=== PATIENT | female | born 1960 | race Caucasian/White ===

== ENCOUNTER 2017-06-11 07:24 | Day surgery (SDC) | payer OTHER ==
--- NOTE | 2017-06-03 12:58 | HP ---
CC: Dr. Margie Barry; Dr. Mahesh Medley III * ADMISSION HISTORY AND PHYSICAL: DATE OF ADMISSION/SURGERY: 06/11/17 - [facility] ATTENDING SURGEON: Teresa Kaufman MD * (DICTATED BY KRISTI BAUTISTA) PRIMARY CARE PHYSICIAN: Mahesh Medley III, MD CHIEF COMPLAINT: Left breast DCIS. HISTORY OF PRESENT ILLNESS: Nisreen is a pleasant 57-year-old female, who returned to our office to discuss breast surgery. The patient had her annual mammogram back in May of this year that revealed suspicious area of cluster microcalcification on the left outer quadrant of the left breast that was not biopsied. The patient went on and had a biopsy of the area that revealed DCIS with areas of atypical ductal hyperplasia. Given her new diagnosis, the patient was referred to our office to discuss further treatment of breast cancer. She was seen by Dr. Kaufman earlier this week and all her mammograms, MRI, and biopsy, pathology reports were discussed and the patient was found to be a good candidate for a mammogram-guided localization of the left breast and excision of DCIS and ADH. The patient herself reports doing well overall. She does her monthly self-breast exam on a regular basis and denies any breast masses or lumps. She had experienced no breast pain, nipple discharge, skin changes, or axillary swelling. She has a strong family history of breast cancer with her 2 sisters diagnosed at age 44 and 53 respectively. Her maternal grandmother also had breast cancer at age 50 and also had 2 maternal first cousins with history of breast cancer diagnosed at age 50 and late 30's. Her 2 sisters were tested for breast cancer genes and were found to be negative for BRCA genes. She reports menarche at age 12 and menopause at age 49. First delivery at age 31 and she has never taken any control pills before. The patient was seen today for further evaluation of breast cancer and to discuss surgery as outlined. PAST MEDICAL HISTORY: Her past medical history is significant for: 1. Hypothyroidism. 2. GERD. 3. Back pain from herniated disk. 4. Hyperlipidemia. 5. Cluster headaches. 6. Chronic sinusitis and rhinitis. 7. She also has history of exercise-induced asthma. 8. Recent history of DCIS of the left breast. 9. Hyperlipidemia. PAST SURGICAL HISTORY: Significant for: 1. Sinus surgery x2 back in the . 2. She also had history of hemifacial spasm on the right side for which she had arterial imaging on her facial nerve in [facility] in 2013. CURRENT MEDICATIONS: Her medications at home include: 1. 10 mg 1 tablet as needed for headache and may repeat once after 2 hours if not resolved. 2. Symbicort 160/4.5 mcg 2 puffs inhaled twice daily. 3. Simvastatin 20 mg 1 tablet by mouth daily. 4. Levothyroxine 25 mcg 1-1/2 tablets by mouth every day. 5. Dymista 137/50 mcg 1 spray in each nostril b.i.d. 6. Calcium supplement plus vitamin D 1 tablet daily. 7. Krill oil 300 mg 1 tablet daily. 8. KCl 10 mEq once daily. 9. Dexilant 60 mg once daily. 10. Loratadine 10 mg once daily. 11. Vitamin B12 2500 mcg once daily. 12. Sudafed 12-hour relief twice daily as needed for nasal congestion. ALLERGIES: She has no known allergies. FAMILY HISTORY: As mentioned above significant for breast cancer on the maternal side with 2 sisters diagnosed as well as maternal grandmother and 2 first cousins. She also has a history of hyperlipidemia on the paternal side with her father suddenly after surgery at age 79. 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 She has never smoked. She consumes hot tea and occasional coffee. She denies illicit drug use. REVIEW OF SYSTEMS: See HPI, otherwise negative. She denies any headache, dizziness, blurred vision, or double vision. No sore throat, shortness of breath, or wheezing. No chest pain, palpitation, or ankle swelling. She denies any back pain, flank pain, dysuria, hematuria, or urinary frequency. She denies any breast lumps, masses, nipple discharge, skin changes, nausea, vomiting, abdominal pain, or recent changes in her bowel habits. Denies constitutional symptoms. No fever, chills, night sweats, or recent weight loss. PHYSICAL EXAMINATION GENERAL: She is a pleasant, healthy-appearing, middle-aged female, comfortable , and in no acute distress or discomfort at the time of her visit. VITAL SIGNS: Her vitals today revealed blood pressure of 126/80, pulse of 66, temperature of 97.1. She is 5 feet 5 inches, weight 186 pounds with BMI of 30.7. HEENT: Sclerae anicteric. PERRLA. EOMs intact. Oropharynx is pink, moist with no exudate. NECK: Supple. Trachea midline. No cervical adenopathy, thyromegaly, or JVD. LUNGS: Clear to auscultation bilaterally. No rales, wheezes, or rhonchi. HEART: Regular rate and rhythm. Normal S1 and S2 without rubs, murmurs, or gallops. BACK: Normal curvature. No CVA tenderness. ABDOMEN: Soft, nontender, nondistended. No hernias, masses, or hepatosplenomegaly. BREAST EXAM: Her breast exam was performed earlier this week by Dr. Kaufman that revealed a symmetrical breast. Exam was performed while the patient was in supine position and in sitting position. There is some residual bruising on the left breast from prior stereotactic biopsy. Breasts were normal to palpation bilaterally. There are no masses or lumps in the left breast. Nipples appear to be normal on inspection. No discharge or skin changes noted. There was no visible or palpable cervical or axillary lymphadenopathy. NEUROLOGIC: Grossly intact. RECTAL EXAM: Deferred at this time. EXTREMITIES: Without cyanosis, clubbing, or edema. IMPRESSION: A 57-year-old female with recent diagnosis of left breast abnormal mammogram with biopsy proven ductal carcinoma in situ/atypical ductal hyperplasia of the left breast. PLAN: The patient is scheduled for mammogram-guided needle localization and excision of left breast DCIS/ADH. The rationale, indications, risks, and benefits of surgery were discussed with her today. Risks include, but not limited to, infection, bleeding, or injury to adjacent structures. We went on and answered all her questions. She seems to be well informed and wishes to proceed with surgery as outlined. She had her cardiac visit with Dr. Barry last week and appears to be doing well with normal ECG and slight improvement in her cholesterol numbers. We will follow her up accordingly after surgery. KRISTI BAUTISTA [id number]/[facility] #: [id number] HANNAH
[~2017-06-11 07:24] MED LIST: Buffered Lidocaine 0.9% SYRIN* 5 ML/SYR SYRINGE INTRADERM ONE; Lidocaine 2.5%/Prilocain 2.5%* 5 GM TUBE ONE; Sodium Citrate/Citric Acid* 15 ML UDC PO ONE
[2017-06-11] MEDS ORDERED: Sodium Citrate/Citric Acid* 15 ML UDC ONE (09:19)
[2017-06-11] MEDS ORDERED: ceFAZolin 2 GM PREMIX (*) 2 GM/50 ML BAG IVPB ONE (09:28)
--- NOTE | 2017-06-11 10:17 | RAD ---
PROCEDURE: Mammographic needle/wire localization of the left breast PREOPERATIVE DIAGNOSIS: Atypical ductal hyperplasia, low-grade DCIS POSTOPERATIVE DIAGNOSIS: Same COMPARISONS: Outside mammograms and MRI COTTON PROGRAM TECHNICIAN: Robel Sherman MD ANESTHESIA: Local anesthesia with 1% lidocaine without epinephrine FLUOROSCOPY TIME: None CONTRAST: None PROCEDURAL NARRATIVE: The procedure was explained to the patient who indicated understanding. Written and verbal informed consent was obtained. An opportunity was given to ask and answer questions. A timeout was performed. The patient was prepped and draped in the usual sterile fashion. Using mammographic guidance, a needle/wire localization system was advanced to the target lesion in the left breast. Once position was confirmed, the needle was removed using pin pull technique. Post localization mammography was performed. The wound was dressed and the wire was secured. FINDINGS: Spot images demonstrate the wire in close proximity to the biopsy marker clip SPECIMENS: Pending COMPLICATIONS: None DISPOSITION: The patient tolerated the procedure well, without complications during or immediately following the procedure. The patient was sent to the surgical suite in good, stable condition. IMPRESSION: TECHNICALLY SUCCESSFUL UNCOMPLICATED MAMMOGRAPHICALLY GUIDED WIRE LOCALIZATION OF THE LEFT BREAST FOR THE PURPOSES OF THE EXCISIONAL BIOPSY.
[2017-06-11] MEDS ORDERED: Lidocaine 1% INJ* 10 MG/ML 30 ML SDV ONE (13:29)
[2017-06-11] MEDS ORDERED: Bupivacaine 0.5% SDV PF* 30 ML VIAL ONE (13:29)
[2017-06-11] MEDS ORDERED: Midazolam* 1 MG/ML 2 ML VIAL (2 MG) ONE ×2 (13:41→13:50)
[2017-06-11] MEDS ORDERED: fentaNYL* 50 MCG/ML 2 ML VIAL (100 MCG VIAL) ONE (13:41)
[2017-06-11] MEDS ORDERED: Lidocaine 2% PF * 5 ML VIAL ONE (13:48)
[2017-06-11] MEDS ORDERED: Propofol* 10 MG/ML 20 ML BTL IV PUSH ONE (13:48)
[2017-06-11] MEDS ORDERED: Acetaminophen TAB* 325 MG PO PRN (14:45)
--- NOTE | 2017-06-11 14:45 | PN ---
Progress Note - Progress Note Date of Service: 06/11/17 Note: Brief Operative Note: Preop Dx: Left Breast cancer (DCIS and ADH( Postop Dx: same Procedure: wide excision Left breast cancer after needle-localization Anesthesia: local, MAC Surgeon: Mandeep Asst: KRISTI Henry Fluids: 700 ml RL EBL: < 50 ml Drains: none Specimen: Right breast tissue Findings: dictated
[2017-06-11] MEDS ORDERED: oxyCODONE/Acetamin 5/325 MG* TAB PO PRN (14:46)
[2017-06-11 15:17] VITALS: BP 137/81
--- NOTE | 2017-06-19 03:19 | OP ---
DATE OF OPERATION: 06/11/17 - [facility] DATE OF : 60 SURGEON: Teresa Kaufman MD PRESSROOM SUPERVISOR: KRISTI Orlando PRE-OP DIAGNOSIS: Microcalcifications of the left breast. POST-OP DIAGNOSIS: Microcalcifications of the left breast. OPERATIVE PROCEDURE: Needle localization and excision of left breast microcalcifications. INDICATIONS: This patient is a 57-year-old female who had microcalcifications identified on a mammogram. She had undergone stereotactic biopsy, which showed questionable results, but at least atypical ductal hyperplasia prompting the plan for surgical intervention. On the date of procedure, she underwent needle localization without difficulty. DESCRIPTION OF PROCEDURE: She was then brought to the operating room, placed on the OR table in the supine position and given IV sedation. The left breast was prepped and draped in the usual sterile fashion taking care not to dislodge localizing wire. After infiltrating local anesthetic, a curvilinear incision was made encompassing the wire. Subcutaneous tissue was then divided with electrocautery to excise the mass of tissue from around the wire. The specimen was removed and handed off with the usual markings. Hemostasis was achieved with electrocautery and once this was adequate, the wound was instilled with additional local and then closure was accomplished with 3-0 Vicryl in the subcutaneous layer and the skin was closed with 4-0 Prolene in a subcuticular fashion. Steri-Strips and a dry sterile dressing were applied. All sponge and instrument counts were correct. The patient tolerated the procedure well and was transferred to Recovery in a stable condition. [id number]/[facility] #: [id number] MTDD
== END 2017-06-11 15:49 | disposition home or self-care (01) ==
LOC: SDS 07:24
PROVIDERS: ATTEND Surgery
DX: D05.12 Intraductal carcinoma in situ of left breast (principal); Z68.30 Body mass index [BMI] 30.0-30.9, adult; E78.5 Hyperlipidemia, unspecified; E03.9 Hypothyroidism, unspecified; K21.9 Gastro-esophageal reflux disease without esophagitis; J45.990 Exercise induced bronchospasm
CPT/HCPCS: 88307; 88341; 88342; 88360; A9270-GY; J0690; J2001; J2250; J2704; J3010

== ENCOUNTER 2017-10-18 08:31 | Day surgery (SDC) | payer OTHER ==
[~2017-10-18 08:31] MED LIST changes: -Lidocaine 2.5%/Prilocain 2.5%* 5 GM TUBE ONE; -Sodium Citrate/Citric Acid* 15 ML UDC PO ONE
[2017-10-18] MEDS ORDERED: ceFAZolin 2 GM (*##) 2 GM/100 ML BAG USE CEFA2SOL IVPB ONE (08:42)
[2017-10-18] MEDS ORDERED: Buffered Lidocaine 0.9% SYRIN* 5 ML/SYR SYRINGE ONE (08:42)
[2017-10-18] MEDS ORDERED: ROPIVACAINE 5 MG/ML 30 ML BTL (0.5%) ONE (10:54)
[2017-10-18] MEDS ORDERED: Lidocaine 2% PF * 5 ML VIAL ONE (10:55)
[2017-10-18] MEDS ORDERED: Propofol* 10 MG/ML 20 ML BTL IV PUSH ONE (10:55)
[2017-10-18] MEDS ORDERED: Midazolam* 1 MG/ML 2 ML VIAL (2 MG) ONE (10:56)
[2017-10-18] MEDS ORDERED: Dexamethasone IV* 4 MG/ML 1 ML (4 MG) ONE (11:51)
[2017-10-18] MEDS ORDERED: Lidocaine 1% MPF wEPI 200,000* 30 ML SDV ONE (12:30)
[2017-10-18] MEDS ORDERED: Bupivacaine 0.25% SDV* 30 ML ONE (12:31)
[2017-10-18] MEDS ORDERED: fentaNYL* 50 MCG/ML 2 ML VIAL (100 MCG VIAL) IV PRN (12:34)
[2017-10-18] MEDS ORDERED: Ondansetron INJ* 2 MG/ML VIAL IV PRN (12:34)
[2017-10-18] MEDS ORDERED: Naloxone* 0.4 MG/ML 1 ML VIAL IV PRN (12:34)
[2017-10-18] MEDS ORDERED: Ondansetron INJ* 2 MG/ML VIAL ONE (14:07)
[2017-10-18] MEDS ORDERED: fentaNYL* 50 MCG/ML 2 ML VIAL (100 MCG VIAL) ONE (14:07)
[2017-10-18 16:00] VITALS: BP 129/94
[2017-10-18] MEDS ORDERED: Scopolamine 1.5 mg* PATCH ONE (16:02)
--- NOTE | 2017-10-19 07:31 | RAD ---
INDICATION: Right wrist surgery. COMPARISON: Comparison is made with prior x-ray study of the right wrist from August 31, 2017. TECHNIQUE: 5 seconds of intermittent fluoroscopic guidance were provided and 3 spot films of the right wrist were obtained in the operating room. FINDINGS: There appears to be resection of the displaced ulnar styloid fracture fragment. IMPRESSION: INTRAOPERATIVE CONTROL FILMS. CPT II Codes: 6045F
--- NOTE | 2017-10-19 14:38 | OP ---
DATE OF OPERATION: 10/18/17 - [facility] DATE OF : 60 SURGEON: Peter Staples MD ARBORICULTURE TEACHER: KRISTI Brink. An auction assistant was needed for the entirety of the procedure to aid in positioning of the arm, retraction, and passing the arthroscopic instrument in and out of the joint. ANESTHESIOLOGIST: Dr. Banda. ANESTHESIA: General with peripheral nerve block. 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 POST-OP DIAGNOSES: 1. Right central triangular fibrocartilage complex perforation. 2. Erosive lesion in the distal ulna. 3. Detachment of the right ulnar styloid. OPERATIVE PROCEDURE: 1. Diagnostic right wrist arthroscopy with central TFCC tear debridement. 2. Curettage and autogenous distal radius bone grafting of right distal ulna erosive bone lesion. 3. Synovectomy of right distal radial ulnar and ulnocarpal wrist joint. 4. Excision of detached right ulnar styloid fragment with open repair of TFCC as able. INDICATIONS: Arun has had progressive ulnar sided wrist pain over years. This all got much worse after back last January, she had an episode where she was cleaning an object and it snapped back and twisted her wrist awkwardly. Since then, the ulnar sided wrist pain has really increased. It has become daily and over the last month or so, it has been very painful. She has failed the nonoperative treatment. 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 She does not have a diagnosis of inflammatory arthropathy or crystalline arthropathy. I talked to her about the risks and benefits. I told her there was a risk that she may still have pain after the surgery, risk of stiffness, or risk of DRUJ instability. She wished to proceed with surgery. ESTIMATED BLOOD LOSS: 2 mL. COMPLICATIONS: None. FINDINGS: As expected, see above and below. DESCRIPTION OF PROCEDURE: Nisreen was seen in the preoperative holding area. We came back to the operating room. The arm was prepped and draped in the usual fashion. This was done after the block had been performed by Dr. Banda. A time- out was performed. The arm was hung in the Acumed wrist traction tower using finger traps. The appropriate traction was placed. I then exsanguinated the arm with the Esmarch and the tourniquet was inflated to 250 mmHg. I used an 11-blade followed by a mosquito and then the blunt trocar to introduce the camera through the 3-4 portal. I then developed 4-5 portal in standard fashion. The biter followed by the shaver was introduced into the 4-5 portal and the central TFCC perforation was debrided back. The distal end of the ulna was visible through the TFCC perforation. I did perform a partial dorsal synovectomy as there was some red inflamed synovitis there. Once I had debrided everything that I could through the wrist scope, I went ahead and developed mid carpal portals. The scapholunate and lunotriquetral ligament joints looked intact. No additional pathology was visualized in the mid carpal portal. The arthroscopic equipment was then withdrawn. The arm was taken out of the traction tower and we prepared for the open portion of the procedure. I made a longitudinal incision over the dorsal ulnar aspect of the wrist. Dissection was carried down and full thickness flaps were raised off the extensor retinaculum. The fifth dorsal compartment was opened and the EDM tendon was mobilized and then retracted radially. I then made a longitudinal DRUJ capsulotomy which was brought back transversely just proximal to the dorsoradial ulnar ligament. There was abundant synovitis encapsulating the distal end of the ulna involving the DRUJ and the ulnocarpal joint just proximal to the dorsoradial ulnar ligament. This was excised and a synovectomy was performed. All of the synovitis was handed off as a specimen. I then extended my flaps back transversely until the extensor carpi ulnaris tendon was unroofed. This was retracted ulnarly. A synovectomy was performed around the ECU tendon as there was a small amount of synovitis present around the tendon. The lesion in the distal end of the ulna was encountered. I took a curette and performed a complete curettage. A 2.4 mm pineapple patric was used to freshen up the edges of the curettage. Just distal to this, the ulnar styloid was detached and very loose and floating. I went ahead and released the soft tissue circumferentially about that and the ulnar styloid was excised and handed off as a specimen together with the curettings from the bone lesion. Once I had completed the curettage and everything was looking clean and the tissue remained was healthy, the defect in the distal ulna was quite sizeable. I decided it needed to be grafted. I retracted my skin flap radially and made a longitudinal incision that took me down to the dorsum of the distal radius. A cortical window was made with the osteotomes. The curette was used to gain cancellous bone graft from the metaphysis of the distal radius. This was packed into my distal ulna bone lesion. Once I had adequate bone graft in the bone lesion, I irrigated out the dorsal distal radius wound. I then took a 3-0 Ethibond suture and sewed into the periphery of the TFCC. I used an 0 Prolene suture to wheeler through the distal subchondral bone of the ulna into the lesion. The 0 Prolene was used to suture shuttle the 3-0 Ethibond suture tails that I had placed in the periphery of the TFCC. These were brought down on to the undersurface of the subchondral bone and tied off securing the periphery of the TFCC to the end of the distal ulna. I tried to increase the DRUJ stability as it had seemed a little lax in pronation and neutral dorsally. After the TFCC was repaired and with the bone graft nicely in place, I went ahead and closed my capsular flap with the 4-0 Ethibond suture. The extensor retinaculum was closed. The EDM tendon was left transposed. The ECU tendon was brought back into its groove and the retinaculum and subsheath were repaired over the top of that to the extent possible. Great care was taken not to sew into the ECU tendon. With the deep layers then closed, I irrigated out the wound. The skin was reapproximated with 3-0 Vicryl and closed with 4-0 Monocryl suture and Steri-Strips. The arthroscopy portals were closed with Steri-Strips. The wounds were then dressed with Xeroform, 4x4's, sterile Webril and a sugar tong splint was placed with the forearm in gentle supination. Tourniquet was deflated. She was woken up and taken to the recovery room in stable condition. [id number]/[facility] #: [id number] [facility] CENTERTamir
== END 2017-10-18 16:27 | disposition home or self-care (01) ==
LOC: OR 08:31
PROVIDERS: ATTEND Orthopaedic Surgery Hand Surgery
DX: M24.831 Other specific joint derangements of right wrist, not elsewhere classified (principal); M24.131 Other articular cartilage disorders, right wrist; J45.909 Unspecified asthma, uncomplicated; E78.00 Pure hypercholesterolemia, unspecified; K21.9 Gastro-esophageal reflux disease without esophagitis; E03.9 Hypothyroidism, unspecified; Z79.899 Other long term (current) drug therapy
CPT/HCPCS: 76000; 88304; 88305; 88311; A9270-GY; J1100; J2001; J2250; J2405; J2704; J2795; J3010

== ENCOUNTER → 2017-11-15 10:20 | Day surgery (SDC) | payer OTHER ==
[~2017-11-15 10:20] MED LIST changes: +Bupivacaine 0.25% SDV* 30 ML ONE; +Bupivacaine 0.5%* 50 ML VIAL ONE; +Chloroprocaine 2%* 20 ML VIAL ONE; +Dexamethasone IV* 4 MG/ML 1 ML (4 MG) ONE; +Famotidine IV* 10 MG/ML 2 ML (20 mg) ONE; +Ketorolac INJ* 30 MG/ML 1 ML VIAL IV PUSH ONE; +Ketorolac INJ* 30 MG/ML 1 ML VIAL ONE; +Lidocain 1% EPI 1:100,000 * 30 ML MDV ONE; +Lidocaine 2% JELLY* 6 ML JELLY TOPICAL ONE; +Midazolam* 1 MG/ML 2 ML VIAL (2 MG) ONE; +Ondansetron INJ* 2 MG/ML VIAL ONE; +Scopolamine 1.5 mg* PATCH ONE; +ceFOXitin 2 GM IVPREMIX* 2 GM/50 ML BAG IVPB ONE; +ceFOXitin(*) 1 GM VIAL ONE; +diPHENhydraMINE IV* 50 MG/ML 1 ml VIAL (BENADRYL) ONE; +fentaNYL* 50 MCG/ML 2 ML VIAL (100 MCG VIAL) ONE
[2017-11-15 15:31] VITALS: BP 118/72
--- NOTE | 2017-11-16 04:20 | OP ---
DATE OF OPERATION: 11/15/17 [facility] DATE OF : 60 SURGEON: Jamie Duvall MD PROGRAM LEAD: Ninfa Abbott NP ANESTHESIOLOGIST: Dr. Pablo Mcfarland. ANESTHESIA: Spinal with local. PRE-OP DIAGNOSES: Hemorrhoids, prolapsing with bleeding. POST-OP DIAGNOSIS: The same, Internal and external hemorrhoids. OPERATIVE PROCEDURE: Anorectal exam under anesthesia with hemorrhoidectomy. ESTIMATED BLOOD LOSS: Minimal. SPECIMENS: Hemorrhoidal tissue. DRAINS: None. COMPLICATIONS: None. WOUND CLASSIFICATION: III. FINDINGS: The patient had prolapsing ulcerated internal hemorrhoids in the two right-sided pedicles with edematous external hemorrhoidal tissue. These two pedicles were removed including both internal and external hemorrhoidal tissue using an open technique. BRIEF HISTORY: Ms. Nisreen Dockery is a 57-year-old woman who has a long history of hemorrhoids. She has problems with discomfort and prolapse and has always been able to reduce them. She has had persistent bleeding, but has never sought care in the past and not had surgery for hemorrhoids as well. She has been recently seen in the office on several occasions over the past week and had internal prolapsing hemorrhoids reduced. She has persistent discomfort and prolapse with bleeding and at this point after an attempted banding, which was not successful, it was recommended that she proceed with an anorectal exam under anesthesia with plans for an open hemorrhoidectomy. The procedure was discussed with the patient and her in detail. The risks but not limited to bleeding, infection, abscess formation, incontinence due to sphincter muscle injury, prolonged recovery time, and prolonged discomfort were all explained. Her questions were answered and she gives her consent. DESCRIPTION OF PROCEDURE: Written informed consent was obtained, intravenous antibiotics were administered. She was taken to the operating room and spinal anesthetic was administered. She was placed in the prone herve-knife position. The perineum and buttocks were prepped and draped in the usual sterile fashion. Time-out verification was completed. A perianal block was then used using a long 25-gauge needle with a mixture of 0.25% Marcaine with 1% lidocaine with epinephrine. On exam, there was obvious circumferential edematous, but viable external hemorrhoidal tissue. This appeared to be worse on the right than the left. Digital exam showed decreased tone due to the spinal anesthetic, but no evidence of bleeding or obvious mass. Careful examination of the anorectal canal using appropriate retractor showed 2 large hemorrhoidal pedicles in the right medial and right posterior areas with ulcerated internal hemorrhoidal tissue. This tissue was viable and not necrotic. The distal rectal mucosa appeared to be unremarkable. There was a smaller more normal appearing left-sided hernia pedicle, which did not appear to be significant and was without evidence of ulceration or prolapse. At this point, I made a decision to proceed with excision of the 2 hemorrhoidal pedicles on the right. I started with the larger one, which was more posterior at about the 5 o'clock position. Using the cut mode on the electrocautery, the perianal skin was excised starting distally and using an elliptical incision followed up into the anal canal and with care we are able to excise both the internal and external hemorrhoid. I was able to identify the sphincter muscles and these were dissected "down" to protect them from injury up to above the dentate line in the distal rectal mucosa where the pedicle was clamped with a tonsil clamp, the hemorrhoidal tissue was amputated and sent for specimen. A 2-0 Vicryl LigaSure was then used to ligate the vascular pedicle with good result. Attention was then turned to the second pedicle, which was somewhat more around the 2 o'clock position. Similarly, the external skin was divided with the cautery in elliptical incision, extending into the anal canal to include the external and internal hemorrhoidal tissue up to above the dentate line. Once again, the pedicle was clamped with a tonsil clamp. The hemorrhoidal tissue was amputated and the pedicle was oversewn with an interrupted 2-0 Vicryl suture. I left approximately a 1 cm width of mucosa between the 2 hemorrhoidectomies, which appeared to viable at the completion of the case. Hemostasis was assured and the hemorrhoidectomy sites appeared to be without evidence of bleeding. Lidocaine jelly was placed in the anal canal. Dry sterile dressings were placed. The patient tolerated the procedure well, was taken to the recovery room in stable condition. [id number]/[facility] #: [id number] MTDD
== END | disposition home or self-care (01) ==
LOC: OR 10:20
PROVIDERS: ATTEND Surgery
DX: K64.3 Fourth degree hemorrhoids (principal); J45.909 Unspecified asthma, uncomplicated; Z85.3 Personal history of malignant neoplasm of breast; K21.9 Gastro-esophageal reflux disease without esophagitis; K44.9 Diaphragmatic hernia without obstruction or gangrene
CPT/HCPCS: 88304; A9270-GY; J0694; J1100; J1200; J1885; J2250; J2400; J2405; J3010

== ENCOUNTER → 2019-03-29 08:06 | Day surgery (SDC) | payer OTHER ==
[~2019-03-29 08:06] MED LIST changes: -Buffered Lidocaine 0.9% SYRIN* 5 ML/SYR SYRINGE INTRADERM ONE; +Buffered Lidocaine 1% SYRIN* 1 ML/SYRINGE INTRADERM ONE; -Bupivacaine 0.25% SDV* 30 ML ONE; -Bupivacaine 0.5%* 50 ML VIAL ONE; -Chloroprocaine 2%* 20 ML VIAL ONE; +EPINEPHRINE 1 MG/ML 1 ML VIAL ONE; -Famotidine IV* 10 MG/ML 2 ML (20 mg) ONE; -Ketorolac INJ* 30 MG/ML 1 ML VIAL IV PUSH ONE; -Ketorolac INJ* 30 MG/ML 1 ML VIAL ONE; +Lactated Ringers 1000 ML Bag* 1,000 ML IV SCH; -Lidocain 1% EPI 1:100,000 * 30 ML MDV ONE; +Lidocaine 1% w EPI 1:100,000* MDV 20 ML VIAL ONE; -Lidocaine 2% JELLY* 6 ML JELLY TOPICAL ONE; +Lidocaine 4% TOPICAL* 50 ML TOP.SOLN ONE; +Midazolam* 1 MG/ML 5 ML VIAL (5 MG) ONE; +Naloxone* 0.4 MG/ML 1 ML VIAL IV PRN; +Ondansetron INJ* 2 MG/ML VIAL IV PRN; +Oxymetazoline 0.05% NASAL SPR* 15 ML BTL ONE; +Propofol* 10 MG/ML 20 ML BTL ONE; +Rocuronium* 10 MG/ML VIAL ONE; -ceFOXitin 2 GM IVPREMIX* 2 GM/50 ML BAG IVPB ONE; -ceFOXitin(*) 1 GM VIAL ONE; -diPHENhydraMINE IV* 50 MG/ML 1 ml VIAL (BENADRYL) ONE; +fentaNYL* 50 MCG/ML 2 ML VIAL (100 MCG VIAL) IV PRN; +oxyCODONE/Acetamin 5/325 MG* TAB PO PRN
--- NOTE | 2019-03-29 13:43 | OP ---
DATE OF OPERATION: 03/29/19 - [facility] DATE OF : 60 SURGEON: Prasad Nicholas MD. PRE-OP DIAGNOSIS: Right vocal cord cyst. POST-OP DIAGNOSIS: Right vocal cord cyst. OPERATIVE PROCEDURE: Microlaryngoscopy with an excision of a right vocal cord cyst with mini-micro flap under general endotracheal anesthesia. COMPLICATIONS: None. DISPOSITION: Good. SPECIMENS: None. ESTIMATED BLOOD LOSS: None. DESCRIPTION OF PROCEDURE: The patient was taken to the operating room and placed in the supine position on the operating table. General anesthesia was induced, and she was orotracheally intubated, turned and draped for the surgery. Tooth guard was placed on the upper teeth and the laryngoscope was inserted and suspended from the suspension system and the microscope was brought in. She had a cyst lying at the leading edge of the mid membranous vocal cord on the right side. A sickle knife was used to make an incision through the mucosa on the lateral aspect of the cyst. A micro grasper was used to elevate the mucosa. A tab knife was used to elevate out, the cyst did rupture. I then used micro cup to peel out the cyst lining and the micro flap was placed back into position. This was done using oxymetazoline and 4% lidocaine as an anesthetic topical solution. Once the surgery was completed, the laryngoscope was released and removed and so was the tooth guard. The patient tolerated the procedure well, no complications, transferred to the recovery room in stable condition. [id number]/[facility] #: [id number] MTDD
[2019-03-29 15:49] VITALS: BP 153/85
== END | disposition home or self-care (01) ==
LOC: OR 08:06
PROVIDERS: ATTEND Otolaryngology
DX: J38.7 Other diseases of larynx (principal); K21.9 Gastro-esophageal reflux disease without esophagitis; E03.9 Hypothyroidism, unspecified
CPT/HCPCS: A9270-GY; J1100; J2250; J2405; J2704; J3010

== ENCOUNTER 2019-06-07 14:10 | Emergency (ER) | payer OTHER ==
--- OUTSIDE RECORDS SUMMARY | 2019-06-07 14:41 | XMS REPORT | Continuity of Care Document ---
:1960 External Reference #:[id number] Author Name Stephen Nicholas M.D. Address [address] [place] [address] Care Team Providers Name Role Phone Marisa Sumner M.D. - Neurology Care Team Information [employer] [phone] Stacie De Leon M.D. Care Team Information [employer] [phone] Problems Description No Information Available Social History Type Date Description Comments Sex Unknown Tobacco Use Start: Unknown End: Unknown Former Social Smoker Smoking Status Reviewed: 04/10/19 Former Social Smoker Tobacco Use Start: Unknown End: Unknown current.no Tobacco Use Start: Unknown End: Unknown current.no Smokeless Tobacco current.no ETOH Use Currently rarely consumes alcohol Tobacco Use Start: Unknown End: Unknown Patient is a former smoker Allergies, Adverse Reactions, Alerts Description No Known Drug Allergies Medications Active Medications SIG Qnty Indications Ordering Provider Date Bactroban Nasal apply to nose 15gm John Paul Hodgson, 06/20/2014 2% twice daily MD Ointment Symbicort 2 puffs 2x a day 90days Stephen Patrick 09/04/2013 with spacer Ricardo Nicholas 160-4.5mcg/Act Aerosol Spacer For Symbicort Olease provide 493.90 Stephen Patrick 12/07/2012 spacer for Ricardo Nicholas symbicort Dymista 1 spray twice a 90days 477.0 Stephen Patrick 08/30/2012 137-50mcg/Act day "wait for Ricardo Nicholas Suspension secondary insurance card" Mupirocin Apply To Each 88units Stephen Patrick 06/08/2012 2% Ointment Nostril Twice A Ricardo Nicholas Day as Directed By MD Swain Nasal Zeigler 2 sprays once a 90Days Stephen Patrick 12/10/2011 day Ricardo Nicholas 0.15% 205 mcg Epipen 2-Vivek use as directed 2units 477.8 Stephen Patrick 05/06/2011 Ricardo Nicholas 0.3mg/0.3ML Device Maxalt 10MG Unknown 10mg Tablets Ipratropium Nasal prn Unknown Zeigler Calcium Citrate Plus bid Unknown Tablets Vitamin D3 daily Unknown 2000Unit Capsules Vitamin B-12 daily Unknown 2500mcg Tablets Sub Tizanidine HCL take 1 capsules Unknown 4mg by mouth every 8 Capsules hours if needed for muscle spasm Montelukast Sodium Mccray PA, Kyle 10mg Tablets Tamoxifen Citrate Anderson RING SEWER, Eunice 20mg Tablets Desloratadine Fenezekiel PA, 5mg Cyndy Tablets Simvastatin Emmie Stone RING SEWER 20mg Tablets Dexilant Emmie Stone NP 60mg Capsules DR Krill Oil 300MG daily Mahesh Medley MD 1000mg Capsules Coq10 200MG Daily Mahesh Medley MD 100mg Capsules Xyzal 1 by mouth every Mahesh Medley MD 5mg Tablets day Clarinex 1 by mouth every Mahesh Medley MD 5mg Tablets day Immunotherapy Unknown Sudafed Unknown Levothyroxine Sodium 50mcg daily Unknown Prevacid Unknown Immunizations Description No Information Available Vital Signs Date Vital Result Comment 04/11/2019 3:39pm Weight 189.00 lb Weight 85.730 kg 03/14/2019 1:59pm Weight 189.00 lb Weight 85.730 kg Height 65 inches 5'5" Height in cm's 165.1 cm BMI (Body Mass Index) 31.4 kg/m2 Results Description No Information Available Procedures Date Code Description Status 04/11/2019 05163 Fiberoptic Laryngoscopy Completed 03/29/2019 35818 Laryngoscopy, Dir. Oper. W/Micro Or Telescope RMVL Of VC Completed Lesion 03/14/2019 42777 Fiberoptic Laryngoscopy Completed Medical Devices Description No Information Available Encounters Description No Information Available Assessments Date Code Description Provider 04/11/2019 J38.2 Nodules of vocal cords Stephen Nicholas M.D. 03/29/2019 J38.2 Nodules of vocal cords Stephen Nicholas M.D. 03/14/2019 J38.2 Nodules of vocal cords Stephen Nicholas M.D. Plan of Treatment 04/11/2019 - Stephen Nicholas M.D.J38.2 Nodules of vocal cordsComments:The patient is doing really well after removal of the right vocal cord cyst. There is some edema of the cord but the cyst is gone and there is no significant bruising. She can start talking for needs but I want her to wait a could of weeks before starting full voice use. If she has any problems with her voice at that time she should get some speech therapy.Follow up:FU as needed Functional Status Description No Information Available Mental Status Description No Information Available Referrals Description No Information Available
--- OUTSIDE RECORDS SUMMARY | 2019-06-07 14:41 | XMS REPORT | Continuity of Care Document ---
:1960 External Reference #:[id number] Author Name Emmie Stone, N.P. (transmitted by agent of provider Kimberli Whiting) Address [address] [facility] [facility], [address] [place] [id number] Care Team Providers Name Role Phone Stacie De Leon MD - Internal Care Team Information Investor Relations Manager Medicine Problems Active Problems Provider Date Personal history of primary malignant Emmie Stone, N.P. Onset: 10/26/2017 neoplasm of breast Pure hypercholesterolemia Mahesh Medley M.D. Onset: 11/07/2012 Hypothyroidism Mahesh Medley M.D. Onset: 06/20/2015 Asthma without status asthmaticus Mahesh Medley M.D. 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/2017 Social History Type Date Description Comments Sex Unknown Tobacco Use Start: Unknown Never Smoked Cigarettes ETOH Use Rarely consumes alcohol Tobacco Use Start: Unknown Patient has never smoked Recreational Drug Use Denies Drug Use Smoking Status Reviewed: 05/08/19 Patient has never smoked Exercise Type/Frequency walks on occ Exercise Type/Frequency Exercises regularly walks; home treadmill, ellipitical Allergies, Adverse Reactions, Alerts Active Allergies Reaction Severity Comments Date NKDA 07/23/2011 Tape 08/31/2017 Medications Active Medications SIG Qnty Indications Ordering Date Provider Bactrim DS one by mouth twice 14tabs N39.0 Emmie Varn, 05/08/2019 800-160mg a day for 7 days N.P. Tablets Tizanidine HCL one by mouth every 30caps M54.5 Emmie Varn, 01/06/2019 4mg 8 hours as needed N.P. Capsules muscle spasms Levothyroxine Sodium 1 by mouth every 90tabs Emmie Bertha, 11/16/2018 day N.P. 50mcg Tablets Betamethasone Apply to scalp bid 50gm L30.9 Emmie Martinezrafael, 03/15/2018 Valerate for 2 weeks N.P. 0.12% Foam Maxalt-[employer] PROFESSIONAL use 1 tab as 12tabs Emmie Bertha, 03/27/2016 10mg Tablets needed for N.P. Dispers headaches. may repeat once after 2 hours Simvastatin 1 tablet by mouth 90tabs E78.2 Emmie Martinezrafael, 05/29/2014 20mg daily N.P. Tablets Tamoxifen Citrate 1 by mouth every Unknown 20mg day Tablets Montelukast Sodium 1 by mouth every Unknown 10mg day Tablets Clarinex 1 tab by mouth Unknown 5mg Tablets every day for allergies and congestion Ipratropium 1 unit every 6 Unknown Haworth/Albuterol hours as needed Sulfate 0.5-2.5(3)mg/3ML Solution Psyllium Husk take 1/2 Unknown 100% tablespoon once Powder daily in 6 ounces of water Krill Oil once a day Unknown 350mg Capsules Sudafed 12 Hour 1 by mouth daily Unknown 120mg Tablets ER 12HR Vitamin B12 1 by mouth every Unknown 2500mcg day Tablets ER Vitamin D3 1 by mouth every Unknown 1000Unit day Tablets Dexilant 1 by mouth every 90caps Emmie Martinezrafael, 60mg Capsules day N.P. DR Mupirocin apply to both Unknown 2% Ointment nostrils twice a day for 5 days prn Symbicort 2 puff inhaled Unknown twice a day 160-4.5mcg/Act Aerosol Coq-10 1 by mouth every 90caps Unknown 100mg Capsules day Calcium Citrate + D3 2 tab po daily Unknown [id number] Tablets Dymista 1 spray each Unknown 137-50mcg/Act nostril bid Suspension Medications Administered in Office Medication SIG Qnty Indications Ordering Provider Date Influenza Virus Vaccine Unknown 05/02/2015 Injection Depomedrol 80MG Delonte Gutierrez M.D. 08/25/2011 Injection Immunizations CPT Code Status Date Vaccine Lot # [id number] Given 05/06/2018 Influenza Virus Vaccine, Quadrivalent, Split, Preservative Free [id number] Given 06/23/2016 Influ Virus Vaccine, Quadrivalent, Split Virus, [place] [id number] [address] Given 06/20/2015 Pneumonia Vaccine [id number] Given 06/20/2015 Tdap - Tetanus/Diptheria/Acellular Pertussis [id number] Given 06/04/2009 Influenza Virus Vaccine, Pandemic Formulation 18114 Given 06/04/2009 Administration Swine Flu Shot [id number] Given 07/01/2005 Td (History By Patient) Vital Signs Date Vital Result Comment 05/08/2019 9:08am Height 65 inches 5'5" Weight 190.00 lb Heart Rate 60 /min BP Systolic 136 mmHg Ra sitting BP Diastolic 85 mmHg Ra sitting Body Temperature 97.8 F O2 % BldC Oximetry 97 % BMI (Body Mass Index) 31.6 kg/m2 01/06/2019 11:32am Height 65 inches 5'5" Weight 185.50 lb Heart Rate 98 /min BP Systolic 127 mmHg BP Diastolic 81 mmHg Body Temperature 98.7 F O2 % BldC Oximetry 98 % BMI (Body Mass Index) 30.9 kg/m2 Results Test Date Facility Test Result H/L Range Note Laboratory test 12/30/2018 [facility] TSH (Thyroid 2.52 Normal 0.34-5.[address] Stim Horm) mcIU/[place] [address] [phone] Basic Metabolic 12/30/2018 [facility] Sodium 138 mmol/L Normal 135-145 Panel [address] [place] [address] [phone] Potassium 3.7 mmol/L Normal 3.5-5.0 Chloride 106 mmol/L Normal 101-111 Co2 Carbon Dioxide 26 mmol/L Normal 22-32 Anion Gap 6 mmol/L Normal 2-11 Glucose 119 mg/dL High 70-100 Blood Urea Nitrogen 14 mg/dL Normal 6-24 Creatinine 0.73 mg/dL Normal 0.51-0.95 BUN/Creatinine Ratio 19.2 Normal 8-20 Calcium 9.1 mg/dL Normal 8.6-10.3 Egfr Non- 81.9 >60 Egfr 99.1 >60 1 Laboratory 11/09/2018 [facility] TSH (Thyroid 4.33 Normal 0.34 -5.60 2 test finding [address] Stim Horm) mcIU/[place] [address] [phone] Lipid Profile 11/09/2018 [facility] Triglycerides 91 mg/dL 3 (Trig/Chol/HD [address] L) [place], [place] [id number] [phone] Cholesterol 165 mg/dL 4 HDL Cholesterol 43.9 mg/dL 5 LDL Cholesterol 103 mg/dL 6 CBC Auto 11/09/2018 [facility] White Blood 5.9 10^3/uL Normal 3.5-10.[address] [place] [address] [phone] Red Blood Count 4.93 10^6/uL High 3.70-4.87 Hemoglobin 14.6 g/dL Normal 12.0-16.0 Hematocrit 42 % High 33-41 Mean Corpuscular Volume 86 fL Normal 80-97 Mean Corpuscular Hemoglobin 30 pg Normal 27-31 Mean Corpuscular HGB Conc 35 g/dL Normal 31-36 Red Cell Distribution Width 13 % Normal 10.5-15 Platelet Count 213 10^3/uL Normal 150-450 Mean Platelet Volume 8.6 fL Normal 7.4-10.4 Abs Neutrophils 4.0 10^3/uL Normal 1.5-7.7 Abs Lymphocytes 1.2 10^3/uL Normal 1.0-4.8 Abs Monocytes 0.4 10^3/uL Normal 0-0.8 Abs Eosinophils 0.2 10^3/uL Normal 0-0.6 Abs Basophils 0.1 10^3/uL Normal 0-0.2 Abs Nucleated RBC 0 10^3/uL Granulocyte % 68.6 % Lymphocyte % 20.2 % Monocyte % 6.7 % Eosinophil % 3.5 % Basophil % 1.0 % Nucleated Red Blood Cells % 0 Comp Metabolic 11/09/2018 [facility] Sodium 140 mmol/L Normal 135-[address] [place], [place] [id number] [phone] Potassium 4.3 mmol/L Normal 3.5-5.0 Chloride 104 mmol/L Normal 101-111 Co2 Carbon Dioxide 29 mmol/L Normal 22-32 Anion Gap 7 mmol/L Normal 2-11 Glucose 99 mg/dL Normal 70-100 Blood Urea Nitrogen 18 mg/dL Normal 6-24 Creatinine 0.74 mg/dL Normal 0.51-0.95 BUN/Creatinine Ratio 24.3 High 8-20 Calcium 9.6 mg/dL Normal 8.6-10.3 Total Protein 7.0 g/dL Normal 6.4-8.9 Albumin 4.8 g/dL Normal 3.2-5.2 Globulin 2.2 g/dL Normal 2-4 Albumin/Globulin Ratio 2.2 Normal 1-3 Total Bilirubin 0.80 mg/dL Normal 0.2-1.0 Alkaline Phosphatase 102 U/L Normal 34-104 Alt 22 U/L Normal 7-52 Ast 24 U/L Normal 13-39 Egfr Non- 80.6 >60 Egfr 97.5 >60 7 Laboratory test 11/09/2018 [facility] Vitamin D 52.0 ng/mL High 20-[address] Total 25(Oh) [place], [place] [id number] [phone] 1 Because ethnic data is not always readily available, this report includes an eGFR for both -Americans and non- Americans. The National Kidney Disease Education Program (NKDEP) does not endorse the use of the MDRD equation for patients that are not between the ages of 18 and 70, are , have extremes of body size, muscle mass, or nutritional status, or are non- or non-. According to the National Kidney Foundation, irrespective of diagnosis, the stage of the disease is based on the level of kidney function: Stage Description GFR(mL/min/1.73 m(2)) 1 Kidney damage with normal or decreased GFR 90 2 Kidney damage with mild decrease in GFR 60-89 3 Moderate decrease in GFR 30-59 4 Severe decrease in GFR 15-29 5 Kidney failure <15 (or dialysis) 2 FASTING 10 HOUR 3 Desirable: <150 Borderline High: 150-199 High: 200-499 Very High: >500 4 Desirable: <200 Borderline High: 200-239 High: >239 5 Low: <40 Desirable: 40-60 High: >60 6 Desirable: <100 Near Optimal: 100-129 Borderline High: 130-159 High: 160-189 Very High: >189 7 Because ethnic data is not always readily available, this report includes an eGFR for both -Americans and non- Americans. The National Kidney Disease Education Program (NKDEP) does not endorse the use of the MDRD equation for patients that are not between the ages of 18 and 70, are , have extremes of body size, muscle mass, or nutritional status, or are non- or non-. According to the National Kidney Foundation, irrespective of diagnosis, the stage of the disease is based on the level of kidney function: Stage Description GFR(mL/min/1.73 m(2)) 1 Kidney damage with normal or decreased GFR 90 2 Kidney damage with mild decrease in GFR 60-89 3 Moderate decrease in GFR 30-59 4 Severe decrease in GFR 15-29 5 Kidney failure <15 (or dialysis) Procedures Date Code Description Status 12/13/2018 [id number] Mammogram Completed 06/13/2018 [id number] Mammogram Completed 12/14/2017 [id number] Mammogram Completed 07/09/2017 [id number] Bone Mineral Density Test Completed 06/11/2017 [id number] Mammogram Completed 05/13/2017 [id number] Mammogram Completed 05/13/2016 [id number] Mammogram Completed 09/17/2015 [id number] Mammogram Completed 03/13/2015 [id number] Mammogram Completed 10/08/2014 [id number] Colonoscopy Completed 05/11/2012 [id number] Mammogram Completed 12/30/2010 [id number] Mammogram Completed 05/19/2010 [id number] Colonoscopy Completed 01/21/2010 [id number] Mammogram Completed 03/10/2007 [id number] Colonoscopy Completed 10/02/2005 [id number] Colonoscopy Completed Medical Devices Description No Information Available Encounters Type Date Location Provider Dx Diagnosis Office Visit 01/06/2019 [facility] Emmie Stone, M54.5 Low back pain 11:40a Medicine - [facility] N.[facility]. Office Visit 11/16/2018 [facility] Emmie Stone E03.9 Hypothyroidism, 11:20a Medicine - [facility] N.P. unspecified Assessments Date Code Description Provider 05/08/2019 Z00.00 Encounter for general adult medical Emmie Stone, N.P. examination without abnormal findings 05/08/2019 E03.9 Hypothyroidism, unspecified Emmie Varn, N.P. 05/08/2019 E78.00 Pure hypercholesterolemia, unspecified Emmie Varn, N.P. 05/08/2019 K21.9 Gastro-esophageal reflux disease without Emmie Varn, N.P. esophagitis 05/08/2019 G43.909 Migraine, unspecified, not intractable, Emmie Varn, N.P. without status migrainosus 05/08/2019 Z85.3 Personal history of malignant neoplasm of Emmie Martinezn, N.P. breast 05/08/2019 J45.30 Mild persistent asthma, uncomplicated Emmie Varn, N.P. 05/08/2019 N39.0 Urinary tract infection, site not specified Emmie Varn, N.P. 01/06/2019 M54.5 Low back pain Emmie Michellen, N.P. 11/16/2018 E03.9 Hypothyroidism, unspecified Emmie Varn, N.P. Plan of Treatment Future Appointment(s):05/15/2020 9:20 am - Emmie Stone, N.P. at [facility]05/08/2019 - Emmie Stone, N.P.Z00.00 Encounter for general adult medical examination without abnormal findingsComments:For your routine health maintenance:I would encourage you to continue with a regular exercise program. You need to be getting between 1,000 - 1,200 mg of Calcium in daily. The best way to supplement what you get in your diet is to drink Calcium fortified orange juice. If you take a Calcium supplement be sure it has Vitamin D in it to help absorption. Your colonoscopy is up to date. You had this in 2014. You will need this repeated in 2020. Your Tetanus immunization is up to date. You received this in 2014. It is good for 10 years unless you have a major injury, then it is good for 5 years. There is a new shingles vaccine available, Shingrix. This is a series of 2 injections given 2 - 6 months apart. This is available at the pharmacy and I urge you to get this.E03.9 Hypothyroidism, unspecifiedComments:For your hypothyroidism: Continue with your current dose of medication.E78.00 Pure hypercholesterolemia, unspecifiedComments :For your high cholesterol: I advise you to follow a low cholesterol diet. You had levels drawn last October and they were in normal range.K21.9 Gastro- esophageal reflux disease without esophagitisComments:For your esophageal reflux : Continue with your current management. I advise you to avoid food triggers. These include: Spicy, greasy, and acidic foods, along with coffee and alcohol. If at any pointyou feel your symptoms are not well controlled, please contact the office.G43.909 Migraine, unspecified, not intractable, without status migrainosusComments:For your migraine headaches: I advise you to continue with your current management. If you should find that this is ineffective for you , please give the office a call.Z85.3 Personal history of malignant neoplasm of breastComments:For your history of breast cancer continue your management with Dr Hutchison.J45.30 Mild persistent asthma, uncomplicatedComments:For your asthma: Continue your current management. If at any point you find you need to use your rescue inhaler more than twice weekly on a regular basis, please call the office. This indicates your asthma is not adequately controlled.N39.0 Urinary tract infection, site not specifiedNew Medication:Bactrim DS 800-160 mg - one by mouth twice a day for 7 daysNew Labs:Ua Routine, Ordered: 05/08/19Urine Culture And Sensitivities, Ordered: 05/08/19Comments:For your urinary tract infection:I sent a prescription to the pharmacy for Bactrim DS, take one by mouth twice daily for 7 days.Avoid bladder irritants: coffee, tea, deidra, alcohol, and spicy foods.I am sending a specimen for culture, the office will call if you need a different antibiotic. If symptoms persist call the office. Functional Status Description No Information Available Mental Status Description No Information Available Referrals Refer to Reason for Referral Status Appt Date Pain Clinic Patient with chronic low back pain for 26 years. Had Sent 00/00/ 0000 injections about 10 years ago and did well, is interested in getting injections again. I have ordered an MRI and will forward the results. [address] [place], [place] [id number] [phone]
[2019-06-07 14:44] LABS: ABS Basophils 0.1 10^3/ul (0-0.2); ABS Eosinophils 0.3 10^3/ul (0-0.6); ABS Lymphocytes 1.6 10^3/ul (1.0-4.8); ABS Monocytes 0.5 10^3/ul (0-0.8); ABS Neutrophils 4.6 10^3/ul (1.5-7.7); Eosinophil % 3.9 %; Hematocrit 40 % (35-47); Lymphocyte % 22.6 %; Mean Corpuscular HGB Conc 35 g/dL (31-36); Mean Corpuscular Hemoglobin 31 pg (27-31); Mean Corpuscular Volume 87 fL (80-97); Mean Platelet Volume 7.9 fL (7.4-10.4); Platelet Count 186 10^3/uL (150-450); Red Blood Count 4.59 10^6 /uL (3.70-4.87); Red Cell Distribution Width 13 % (10-15)
[2019-06-07 14:51] LABS: INR 0.97 (0.82-1.09)
[2019-06-07 15:03] LABS: Albumin 4.2 g/dL (3.2-5.2); Albumin/Globulin Ratio 1.9 (1-3); BUN/Creatinine Ratio 25.4 (8-20); EGFR African American 126.2 (>60); EGFR Non-African American 104.3 (>60); Globulin 2.2 g/dL (2-4); Potassium 3.6 mmol/L (3.5-5.0); Total Bilirubin 0.3 mg/dL (0.2-1.0); Total Protein 6.4 g/dL (6.4-8.9)
[2019-06-07] MEDS ORDERED: Al Hydrox/Mg Hydrox/Simet LIQ* 30 ML UDC PO ONE (15:45)
[2019-06-07] MEDS ORDERED: Lidocaine 2% VISCOUS* 15 ML UDC PO ONE (15:45)
--- NOTE | 2019-06-07 17:08 | ED ---
Abdominal Pain/Female - HPI Summary HPI Summary: Pt is a 59 y/o F presenting to the ED with a chief complaint of abd pain in the epigastric region initially onset on 06/03/19. She describes it as dull and tight , not worsened or alleviated by anything. She notes hx of hiatal hernia, GERD, and gastric ulcers, but states this feels different. Her normal acid reflux medications are not doing anything for the pain. She admits to burping frequently and nausea that accompany the abd pain. She denies urinary sx, bowel changes, or vomiting. She has FHx gallbladder issues and shes slightly concerned it could be that. Had normal BM. - History of Current Complaint Chief Complaint: EDAbdPain Stated Complaint: ABDOMINAL PAIN AND NAUSEA PER PT Time Seen by Provider: 06/07/19 15:44 Hx Obtained From: Patient Onset/Duration: Gradual Onset, Lasting Hours, Still Present Timing: Hours Severity Initially: Moderate Severity Currently: Moderate Pain Intensity: 4 Pain Scale Used: 0-10 Numeric Location: Epigastric Radiates: No Character: Cramping Aggravating Factor(s): Nothing Alleviating Factor(s): Nothing Associated Signs and Symptoms: Positive: Nausea, Other: - burping. Negative: Chest Pain, Urinary Symptoms, Vomiting Allergies/Adverse Reactions: Allergies Allergy/AdvReac Type Severity Reaction Status Date / Time Adhesive Tape Allergy Intermediate RED RASH Verified 05/30/19 11:07 ENVIRONMENTAL/SEASONAL Allergy Severe ITCHY Uncoded 05/30/19 11:07 ALLERGY NOSE,RUNNY NOSE, CHRONIC SINUSITIS Home Medications: Home Medications Betamethasone Valerate 0.12 % TOPICAL BID PRN 06/07/19 [History Confirmed ] Ibuprofen TAB* [Advil TAB*] 600 mg PO DAILY 06/07/19 [History Confirmed 06/07/19 ] Ketoconazole 2 % CREAM (NF) [Nizoral 2% CREAM (NF)] 1 applic TOPICAL DAILY 06/07 [History Confirmed 06/07/19] Levothyroxine TAB* [Synthroid TAB*] 50 mcg PO DAILY 06/07/19 [History Confirmed 06/07/19] Simvastatin TAB(NF) [Zocor(NF)] 20 mg PO DAILY 06/07/19 [History Confirmed 06/07] Tamoxifen TAB* [Nolvadex*] 20 mg PO DAILY 06/07/19 [History Confirmed 06/07/19] PMH/Surg Hx/FS Hx/Imm Hx Previously Healthy: Yes Endocrine/Hematology History: Reports: Hx Thyroid Disease Denies: Hx Diabetes Cardiovascular History: Denies: Hx Hypertension, Hx Pacemaker/ICD, Other Cardiovascular Problems/ Disorders Respiratory History: Reports: Hx Asthma - gets asthmatic bronchitis- last time aug 2018, Hx Sleep Apnea - ?POSSIBLY- STATES HAS NOT BEEN TESTED, Other Respiratory Problems/Disorders - CONSTANT RUNNY NOSE AND DRAINAGE BACK OF THROAT GI History: Reports: Hx Gastroesophageal Reflux Disease, Hx Hiatal Hernia, Hx Ulcer - hx in past- healed and resolved, Other GI Disorders - hemorrhoids- hemorrectomy 11/15/2017 History: Denies: Hx Dialysis, Hx Renal Disease, Other Problems/Disorders Musculoskeletal History: Reports: Hx Arthritis - osteoarthritis L1-4, Hx Bursitis - POSSIBLE HX OF IN THE RIGHT HIP, Other Musculoskeletal History - pain clinic for back Denies: Hx Osteoporosis, Hx Tendonitis Sensory History: Reports: Hx Contacts or Glasses - glasses Denies: Hx Hearing Aid Opthamlomology History: Reports: Hx Contacts or Glasses - glasses Neurological History: Reports: Hx Migraine - occassionally, 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 PAIN CLINIC PT. Psychiatric History: Reports: Hx Anxiety, Hx Depression Denies: Hx Panic Disorder - Cancer History Cancer Type, Location and Year: BRAIN Hx Chemotherapy: No - radiation Hx Radiation Therapy: Yes - finished 08/19 - Surgical History Surgery Procedure, Year, and Place: and 2000 SINUS SURGERY X2, [facility];. BRAIN SURGERY-[facility]IN[facility] [employer]GETS - NO METAL ( OPERATIVE REPORT SCANNED INTO EMR)- FOR 7TH CRANIAL NERVE DECOMPRESSION -. LT THUMB. 06/11/2017-LUMPECTOMY LEFT BREAST. 05/2017 LEFT BREAST BIOPSY. HEMORRHOIDECTOMY. Rt WRIST - BONEGRAFT Hx Anesthesia Reactions: Yes - severe nausea with general anesthesia Infectious Disease History: No Infectious Disease History: Denies: Hx Human Immunodeficiency Virus (HIV), Traveled Outside the [place] in Last 30 Days - Family History Known Family History: Negative: Diabetes - Social History Alcohol Use: None Hx Substance Use: No Substance Use Type: Reports: None Hx Tobacco Use: No Smoking Status (MU): Never Smoked Tobacco Have You Smoked in the Last Year: No Review of Systems Positive: Other - burping Positive: Abdominal Pain, Nausea. Negative: Vomiting, Other - bowel changes Positive: no symptoms reported All Other Systems Reviewed And Are Negative: Yes Physical Exam - Summary Physical Exam Summary: Constitutional: Well-developed, Well-nourished, Alert. (-) Distressed Skin: Warm, Dry HENT: Normocephalic; Atraumatic Eyes: Conjunctiva normal Neck: Musculoskeletal ROM normal neck. (-) JVD, (-) Stridor, (-) Nuchal rigidity Cardio: Rhythm regular, rate normal, Heart sounds normal; Intact distal pulses; Radial pulses are 2+ and symmetric. (-) Murmur Pulmonary/Chest wall: Effort normal. (-) Respiratory distress, (-) Wheezes, (-) Rales Abd: Soft, epigastric and RUQ tenderness, (-) Distension, (-) Guarding, (-) Rebound Musculoskeletal: (-) Edema Lymph: (-) Cervical adenopathy Neuro: Alert, Oriented x3 Psych: Mood and affect Normal Triage Information Reviewed: Yes Vital Signs On Initial Exam: Initial Vitals Temp Pulse Resp BP Pulse Ox 97.6 F 74 18 136/102 96 06/07/19 14:15 06/07/19 14:15 06/07/19 14:15 06/07/19 14:15 06/07/19 14:15 Vital Signs Reviewed: Yes Procedures - Sedation Patient Received Moderate/Deep Sedation with Procedure: No Diagnostics - Vital Signs Vital Signs Temp Pulse Resp BP Pulse Ox 06/07/19 16:14 63 128/90 96 06/07/19 16:00 61 98 06/07/19 15:35 65 95 06/07/19 14:15 97.6 F 74 18 136/102 96 - Laboratory Lab Results: Lab Results 06/07/19 06/07/19 06/07/19 Range/Units 14:34 14:34 14:34 WBC 7.0 (3.5-10.8) 10^3/uL RBC 4.59 (3.70-4.87) 10^6 /uL Hgb 14.0 (12.0-16.0) g/dL Hct 40 (35-47) % MCV 87 (80-97) fL MCH 31 (27-31) pg MCHC 35 (31-36) g/dL RDW 13 (10-15) % Plt Count 186 (150-450) 10^3/uL MPV 7.9 (7.4-10.4) fL Neut % (Auto) 65.4 % Lymph % (Auto) 22.6 % O'Brien % (Auto) 6.9 % Eos % (Auto) 3.9 % Baso % (Auto) 1.2 % Absolute Neuts (auto) 4.6 (1.5-7.7) 10^3/ul Absolute Lymphs (auto) 1.6 (1.0-4.8) 10^3/ul Absolute Monos (auto) 0.5 (0-0.8) 10^3/ul Absolute Eos (auto) 0.3 (0-0.6) 10^3/ul Absolute Basos (auto) 0.1 (0-0.2) 10^3/ul Absolute Nucleated RBC 0.0 10^3/ul Nucleated RBC % 0.0 INR (Anticoag Therapy) 0.97 (0.82-1.09) Sodium 139 (135-145) mmol/L Potassium 3.6 (3.5-5.0) mmol/L Chloride 107 (101-111) mmol/L Carbon Dioxide 25 (22-32) mmol/L Anion Gap 7 (2-11) mmol/L BUN 15 (6-24) mg/dL Creatinine 0.59 (0.51-0.95) mg/dL Est GFR ( Amer) 126.2 (>60) Est GFR (Non-Af Amer) 104.3 (>60) BUN/Creatinine Ratio 25.4 H (8-20) Glucose 107 H (70-100) mg/dL Calcium 9.0 (8.6-10.3) mg/dL Total Bilirubin 0.30 (0.2-1.0) mg/dL AST 16 (13-39) U/L ALT 15 (7-52) U/L Alkaline Phosphatase 64 (34-104) U/L Troponin I 0.00 (<0.04) ng/mL Total Protein 6.4 (6.4-8.9) g/dL Albumin 4.2 (3.2-5.2) g/dL Globulin 2.2 (2-4) g/dL Albumin/Globulin Ratio 1.9 (1-3) Lipase 37 (11.0-82.0) U/L Result Diagrams: 06/07/19 14:34 06/07/19 14:34 Lab Statement: Any lab studies that have been ordered have been reviewed, and results considered in the medical decision making process. - Ultrasound Gallbladder US Ultrasound Interpretation Completed By: Radiologist Summary of Ultrasound Findings: 1. Normal-appearing gallbladder with no intra or extra hepatic biliary ductal dilatation. 2. Hepatic steatosis. ED physician has reviewed this report. - EKG 1421 Cardiac Rate: NL - 69bpm EKG Rhythm: Sinus Rhythm ST Segment: Normal Ectopy: None EKG Comparison: No Significant Change Summary of EKG Findings: An EKG at 1421 reveals 69bpm that shows T-wave inversions in lead v2 as well as lead III, nml axis, nml intervals. No STEMI. No acute changes. No change compared to EKG in 2014. ED physician has reviewed and interpreted this report. Re-Evaluation - Re-Evaluation 1st re-eval Re-Evaluation Time: 18:26 Change: Improved Comment: labs w/o evidence of infection, lipase normal. US w/o evidence of choledocholithiasis or cholecystitis, she states she feels much better, will be discharged home. plan for follow-up outpatient with GI. Abdominal Pain Fem Course/Dx - Course Course Of Treatment: 59-year-old female presents with epigastric abdominal pain. DDx includes gastritis,pancreatitis, GERD, biliary colic/ choledocholithiasis/cholecystitis, Less likely SBO, PID, ovarian torsion, fibroids. Exam relatively unremarkable today, no rigidity or suggestions of acute surgical abd. Pt with positive right upper quadrant tenderness, check ultrasound gallbladder. Lipase to evaluate for pancreatitis. Will obtain cbc to assess for underlying infection. Pt denies pelvic pain and vaginal discharge, also with no fever, so less likely PID. given GI cocktail. - Diagnoses Provider Diagnoses: Epigastric pain Discharge ED - Sign-Out/Discharge Documenting (check all that apply): Patient Departure - Discharge Plan Condition: Stable Disposition: HOME Patient Education Materials: Acute Abdominal Pain (ED) Referrals: Stacie De Leon MD [Primary Care Provider] - Additional Instructions: You were seen in the emergency department for epigastric abdominal pain. Your labs did not show cause for pain, your ultrasound the gallbladder was normal. If any studies were not completed at the time of discharge you will be called with the relevant results. Please follow up with your primary care doctor in next 2-3 days and return to emergency department for worsening pain, chest pain, passing out, or concerning symptoms. It was a pleasure taking care of you today. - Billing Disposition and Condition Condition: STABLE Disposition: Home - Attestation Statements Document Initiated by Maira: Yes Documenting Scribe: Ines Abreu Provider For Whom Maira is Documenting (Include Credential): Fransico Burton MD. Scribe Attestation: I, Ines Abreu, scribed for Fransico Burton MD. on 06/07/19 at 2154. Scribe Documentation Reviewed: Yes Provider Attestation: The documentation as recorded by the scribe, Ines Abreu accurately reflects the service I personally performed and the decisions made by me, Fransico Burton MD. Status of Scribe Document: Viewed
[2019-06-07 18:43] VITALS: BP 123/95
== END 2019-06-07 18:40 | disposition home or self-care (01) ==
LOC: ED 14:10
DX: R10.13 Epigastric pain (principal); K76.0 Fatty (change of) liver, not elsewhere classified; E03.9 Hypothyroidism, unspecified; J45.909 Unspecified asthma, uncomplicated; K21.9 Gastro-esophageal reflux disease without esophagitis; F41.9 Anxiety disorder, unspecified; F32.9 Major depressive disorder, single episode, unspecified; Z79.890 Hormone replacement therapy; Z79.899 Other long term (current) drug therapy
CPT/HCPCS: 36415; 76705; 80053; 83690; 84484; 85025; 85610; 93005; 99283; A9270-GY